=== PATIENT | male | born 1950 | race Caucasian/White ===

== ENCOUNTER 2017-03-09 03:17 | Emergency (ER) | payer OTHER ==
[~2017-03-09 03:17] MED LIST: ALLOPURINOL300 M1 PO; ASPIRIN EC81 M1 PO; CARVEDILOL25 M1 PO; CORDARONE200 MG PO; FISH OIL 1,0001 EAC2 PO; FUROSEMIDE40 M1 PO; FUROSEMIDE80 M1 PO; HYDRALAZINE HCL25 M1 PO; ISOSORBIDE MONO60 M1 PO; K-TAB ER20 MEQ PO; LASIX40 M1 PO; OMEGA 3-6-9 11200 MG PO; OMEPRAZOLE40 M1 PO; SIMVASTATIN80 M1 PO; VIAGRA100 M1 PO; VITAMIN B-121000 MC3 PO; VITAMIN E400 UNI4 PO
--- NOTE | 2017-03-09 03:26 | ED CRITICAL CARE ---
History of Present Illness General Chief Complaint: Cardiopulmonary Resuscitation Stated Complaint: BIBA CPR Source: old records, EMS Exam Limitations: clinical condition Vital Signs & Intake/Output Vital Signs & Intake/Output . Allergies Coded Allergies: shellfish derived (UNKNOWN 08/01/16) Reconcile Medications Allopurinol 300 MG TABLET 1 TAB PO DAILY GOUT (Reported) Amiodarone (Cordarone) 200 MG TABLET 1 TAB PO DAILY HEART RHYTHM Aspirin (Ecotrin*) 81 MG TABLET.DR 1 TAB PO DAILY HEART/BLOOD (Reported) Carvedilol 25 MG TABLET 1 TAB PO BID HEART Cyanocobalamin (Vitamin B-12) 1,000 MCG TABLET 1 TAB PO DAILY VITAMIN SUPPORT (Reported) Fish Oil/Borage/Flax/Om3,6,9#1 (Mcintosh 3-6-9 1,200 MG Softgel) 1,200 MG CAPSULE 1 CAP PO DAILY VITAMIN SUPPORT (Reported) Furosemide (Lasix) 40 MG TABLET 3 TAB PO BID WATER PILL PLEASE FOLLOW UP WITH YOUR NEHPROLOGIST AND WIRE PHOTO OPERATOR WITHIN ONE -TWO WEEKS OF DISCHARGE AND FURTHER ADJUST THE DOSAGE PER ASSEMBLER TRIM AND CARDIOLOGY RECOMMENDATION. Hydralazine HCl 25 MG TABLET 1 TAB PO TID BP (Reported) Isosorbide Mononitrate (Isosorbide Mononitrate ER) 60 MG TAB.ER.24H 1 TAB PO DAILY ANGINA (Reported) Omeprazole 40 MG CAPSULE.DR 1 CAP PO DAILY STOMACH ACID (Reported) Potassium Chloride (K-Tab ER) 20 MEQ TABLET.ER 2 TAB PO DAILY POTTASIUM SUPPLEMNTATION PLEASE CONTINUE TAKING 2 TABS OF POTTASIUM WHILE ON 120 MG LASIX, ONCE LASIX DOSE ADJUSTED OR CHANGES, PLEASE TALK TO YOUR DOCTOR TO ALSO ADJUST POTTASIUM SUPPLEMENTATION. Simvastatin (Simvastatin*) 80 MG TABLET 0.5 TAB PO DAILY CHOLESTEROL ( Reported) Vitamin E Acetate (Vitamin E) 400 UNIT CAPSULE 1 CAP PO DAILY SUPPLEMENT ( Reported) Triage Nurses Notes Reviewed? yes Onset: unknown onset... pt found in his bed, last seen approx 8, 9pm Duration: unknown Timing: single episode today Injury Environment: home Severity: severe Modifying Factors: Worsens With: other (no response to aed/epi). Associated Symptoms: cardiac arrest HPI: 66 yo gentleman h/o cardiac surgery many years ago, h/o defibrillator, presents in asystolic arrest. He was last seen when he went to bed yesterday evening. His noted that he did not appear to be breathing at approximately 2:38 AM. "He was cold when I touched him... his whole body was cold." 911 was called and BLS crew arrived at 243. They found him asystolic. The bedside AED declared "no shock advised." A second evaluation advised a shock. He was shocked in the field 1 without effect. The medic arrived. He was found to be in asystolic arrest without spontaneous breath sounds. The medics noted that he had extremely cold extremities. He was given epi 5 without effect. Past History Travel History Traveled to [place] past 21 day No Medical History Any Pertinent Medical History? see below for history Neurological: NONE EENT: NONE Cardiovascular: CAD, CHF, hypertension, hyperlipidemia, myocardial infarction, DEFIB/PACER CHANGED 2006 PACEMAKER 1992 Respiratory: NONE Gastrointestinal: "TEAR IN THROAT LINING" Hepatic: NONE Renal: TAYLOR Musculoskeletal: NONE Psychiatric: NONE Endocrine: NONE Blood Disorders: anemia Cancer(s): NONE RETAIL DEPARTMENT RESET/Reproductive: NONE History of MRSA: No History of VRE: No History of CDIFF: No Pneumonia Vaccine: 05/02/15 Influenza Vaccine: 08/04/16 Surgical History Surgical History: CABG W/1992 Psychosocial History Who do you live with Spouse Services at Home None What is your primary language Kyrgyz Family History Family History, If Any: FATHER *No pertinent family history Relation not specified for: FH: myocardial infarction Hx Contributory? No Review of Systems Review of Systems Constitutional: Reports: no symptoms. Eyes: Reports: no symptoms. Ears, Nose, Throat, Mouth: Reports: no symptoms. Respiratory: Reports: no symptoms. Cardiovascular: Reports: no symptoms. Gastrointestinal/Abdominal: Reports: no symptoms. Genitourinary: Reports: no symptoms. Musculoskeletal: Reports: no symptoms. Skin: Reports: no symptoms. Neurological/Psychological: Reports: no symptoms. All Other Systems: Reviewed and Negative Physical Exam Physical Exam General Appearance: well developed/nourished, no apparent distress Head: atraumatic Eyes: Bilateral: normal appearance, other (fixed,dilated,no corneal rflx). Ears, Nose, Throat, Mouth: hearing grossly normal Neck: normal inspection, supple Respiratory: bilateral symmetric breath sounds with BMV. ET tube at 26cm Cardiovascular: no heart sounds w/o chest compressions. 2+ distal pulses with chest compressions. Gastrointestinal: soft, non-tender Back: normal inspection Extremities: cool extremities w/ pallor and cyanosis Neurologic/Psych: unresponsive, no pulse, no spontaneous breathing. Skin: cyanosis, pallor Core Measures ACS in differential dx? No CVA/TIA Diagnosis: No Severe Sepsis Present: No Septic Shock Present: No Progress Differential Diagnoses I considered the following diagnoses in my evaluation of the patient: cardiac arrest Plan of Care: pt intubated in field, pt received epi x 5 without effect. asystolic throughout on rhythm strip... total code time 44 minutes.... pt pronounced at 3:22am. Initial ED EKG: none Rhythm Strip: asystole from medics, asystole in ED on 2 different leads. Departure Departure Disposition: Condition: Stable Clinical Impression Primary Impression: Cardiac arrest Referrals: DANITA GILBERT MD (PCP/Family) Departure Forms: General Discharge Information Comments discussed at length with family. Critical Care Note Critical Care Note Critical Care Time: 30-74 min
== END 2017-03-09 03:22 | disposition expired ==
LOC: ERH 03:17
DX: I46.9 Cardiac arrest, cause unspecified (principal)
CPT/HCPCS: 1387; 94799